=== PATIENT | male | born 1975 | race Caucasian/White ===

== ENCOUNTER 2023-01-11 12:59 | Outpatient (CLI) | payer BC, SELFPAY ==
[2023-01-11 13:21] LABS: Basophils Absolute Auto 0.1 K/mm3 (0.0-0.1); Basophils Percent Auto 0.7 % (0.2-1.2); Eosinophils Absolute Auto 0.1 K/mm3 (0-0.3); Eosinophils Percent Auto 1.2 % (0-4.4); Hematocrit 44.7 % (42.0-52.0); Immature Granulocyte Absolute 0.06 K/mm3 (0.00-0.031); Immature Granulocyte Percent A 0.6 % (0-0.5); Lymphocytes Absolute Auto 2.24 K/mm3 (0.9-3.2); Lymphocytes Percent Auto 22.8 % (18.3-44.2); Mean Corpuscular HGB Conc 33.6 g/dl (32-36); Mean Corpuscular Volume 83.4 fl (80-100); Mean Platelet Volume 9.1 fl (7.4-10.4); Monocytes Absolute Auto 0.8 K/mm3 (0.1-0.6); Monocytes Percent Auto 8.4 % (2.6-8.5); Neutrophils Absolute Auto 6.5 K/mm3 (1.3-6.7); Neutrophils Percent Auto 66.3 % (45.5-73.1); Platelet Count Result 325 k/mm3 (150-375); Red Blood Count 5.36 M/mm3 (4.6-6.20); Red Cell Distribution Width 14.4 % (11.5-14.5); White Blood Count 9.8 K/mm3 (4.5-10.0)
[2023-01-11 13:29] LABS: Alanine Aminotransferase 19 U/L (6-50); Albumin Level 4.8 g/dL (3.5-5.1); Alkaline Phosphatase 161 U/L (38-126); Anion Gap 8 mmol/L (8-16); Aspartate Amino Transferase 32 U/L (17-59); Bilirubin,Total 0.4 mg/dL (0.2-1.3); Blood Urea Nitrogen 17 mg/dL (9-20); Calcium 9.3 mg/dL (8.4-10.2); Carbon Dioxide 26 mmol/L (22-30); Chloride 103 mmol/L (98-107); Cholesterol 257 mg/dL (0-200); Estimated Glomerular Filt Rate > 60; Glucose 96 mg/dL (65-110); HDL Direct 33 mg/dL; Potassium 4.1 mmol/L (3.4-5.0); Sodium 137 mmol/L (137-145); Triglycerides 368 mg/dL (<150)
[2023-01-11 13:40] LABS: LDL Cholesterol Direct 157 mg/dL
[2023-01-11 13:54] LABS: Hemoglobin A1C 5.5 % (<5.7)
[2023-01-15 21:20] LABS: PSA, Free 0.29 ng/mL; PSA, Total 2.1 ng/mL (<=4.0)
== END 2023-01-11 13:00 | disposition home or self-care (01) ==
LOC: ANHLAB 13:01
PROVIDERS: PCP Family Medicine; Visit Provider Family Medicine
DX: I10 Essential (primary) hypertension (principal); E07.9 Disorder of thyroid, unspecified; E03.9 Hypothyroidism, unspecified; Z80.42 Family history of malignant neoplasm of prostate; Z13.1 Encounter for screening for diabetes mellitus; E78.2 Mixed hyperlipidemia
CPT/HCPCS: 36415; 80053; 80061; 83036; 84153; 84154; 84439; 84443; 85025

== ENCOUNTER 2023-01-23 10:55 | Outpatient (CLI) | payer BC, SELFPAY ==
--- NOTE | ~2023-01-23 | US_ITS ---
EXAMINATION: US thyroid DATE: 01/23/2023 11:19 INDICATION: Abnormal result of thyroid function studies TECHNIQUE: Multiple ultrasound images of the thyroid were obtained. COMPARISON: None. FINDINGS: The right thyroid lobe measures 4.5 x 1.2 x 1.6 cm. The left thyroid lobe measures 4.6 x 1.3 x 1.2 c m. No discrete nodules identified. There is diffuse heterogeneous decreased echogenicity with coarse laron echotexture and increased vascular flow on color Doppler throughout the thyroid which can be seen with thyroiditis. IMPRESSION: 1. Heterogeneous thyroid with decreased echogenicity, coarsened echotexture and increased vascular fl ow which can be seen with thyroiditis. Reviewed, dictated and finalized at location A. IMPRESSION: 1. Heterogeneous thyroid with decreased echogenicity, coarsened echotexture and increased vascular flow which can be seen with thyroiditis.
== END 2023-01-23 10:56 | disposition home or self-care (01) ==
LOC: ANHIMG 10:56
PROVIDERS: PCP Family Medicine; Visit Provider Physician Assistant
DX: R94.6 Abnormal results of thyroid function studies (principal)
CPT/HCPCS: 76536

== ENCOUNTER 2023-02-04 05:54 | Observation (INO) | payer BC, SELFPAY ==
--- NOTE | ~2023-02-04 | XR_ITS ---
XR wrist RT min 3V 02/04/2023 09:24 Indication: Right wrist pain Procedure: 4 views right wrist Comparison: No prior studies for comparison. Findings: There is anatomic alignment. No fracture, subluxation or dislocation. No foreign bodies. Impression: 1: No acute bone or joint abnormality. Reviewed, dictated and finalized at location B. Impression: 1: No acute bone or joint abnormality.
[2023-02-04 06:16] VITALS: BP 147/98; PULSE 87; RESP 18; TEMP 36.4; O2SAT 100
[2023-02-04 08:28] LABS: Basophils Percent Auto 0.2 % (0.2-1.2); Eosinophils Absolute Auto 0.1 K/mm3 (0-0.3); Hematocrit 41.8 % (42.0-52.0); Hemoglobin 13.9 g/dL (14.0-18.0); Immature Granulocyte Absolute 0.03 K/mm3 (0.00-0.031); Immature Granulocyte Percent A 0.3 % (0-0.5); Lymphocytes Absolute Auto 1.75 K/mm3 (0.9-3.2); Lymphocytes Percent Auto 19.2 % (18.3-44.2); Mean Corpuscular HGB Conc 33.3 g/dl (32-36); Mean Corpuscular Hemoglobin 28.1 pg (26-34); Mean Corpuscular Volume 84.6 fl (80-100); Mean Platelet Volume 9.3 fl (7.4-10.4); Monocytes Absolute Auto 0.8 K/mm3 (0.1-0.6); Neutrophils Absolute Auto 6.4 K/mm3 (1.3-6.7); Neutrophils Percent Auto 70.3 % (45.5-73.1); Platelet Count Result 254 k/mm3 (150-375); Red Blood Count 4.94 M/mm3 (4.6-6.20); Red Cell Distribution Width 14.6 % (11.5-14.5); White Blood Count 9.1 K/mm3 (4.5-10.0)
[2023-02-04 08:41] LABS: Alanine Aminotransferase 16 U/L (6-50); Albumin Level 4.3 g/dL (3.5-5.1); Alkaline Phosphatase 157 U/L (38-126); Anion Gap 7 mmol/L (8-16); Aspartate Amino Transferase 40 U/L (17-59); Bilirubin,Total 0.3 mg/dL (0.2-1.3); Blood Urea Nitrogen 20 mg/dL (9-20); Calcium 8.7 mg/dL (8.4-10.2); Carbon Dioxide 24 mmol/L (22-30); Chloride 109 mmol/L (98-107); Estimated CRCL calculation 117 ml/min; Estimated Glomerular Filt Rate > 60; Glucose 101 mg/dL (65-110); Potassium 3.9 mmol/L (3.4-5.0); Sodium 140 mmol/L (137-145); Uric Acid 7.2 mg/dL (3.5-8.5)
[2023-02-04 08:42] LABS: Rheumatoid Factor < 12.0 IU/ML (<12)
[2023-02-04 08:43] LABS: CRP 2.8 mg/dL (<1.0)
[2023-02-04 08:59] LABS: Erythrocyte Sedimentation Rate 17 mm/hr (0-20)
[2023-02-04] MEDS: diphenhydrAMINE HCl INJ 50 MG/ML VIAL 25 MG IV PUSH (09:01)
--- NOTE | 2023-02-04 10:10 | ED.GENADULT ---
HPI - General Adult General Chief complaint: Unspecified Stated complaint: hives, right arm swelling Time Seen by Provider: 02/04/23 07:19 History of Present Illness HPI narrative: Patient is a 47-year-old male who presents ER due to concerns for rash. Patient reports for the last several months he has been having sporadic rashes that can occur anywhere on his body. They have been on his ear, his lip, and his fingertips. They have also moved across his abdominal and chest wall. They will last for 1 to 2 days and go away on their own. No itching. He noticed yesterday his right hand at the hyperthenar eminence he was having some swelling and redness. He did not think much of it as its been what has been occurring. It then spread to the thenar eminence and proximally over his volar forearm. After arriving in the ER he newly developed blisters over the volar aspect of his wrist. He reports he was doing some yard work previously but was wearing gloves. He was only moving some dirt and concrete pavers and does not feel he was exposed to any poison amanda or poison sumac. He has no fevers or chills or sweats. He has been recently diagnosed with hypothyroidism and hyperlipidemia. He has started new medications for these but his skin issues have been ongoing longer. He has not tried any Benadryl or steroids. He is not on any antihistamines. He does have a brother who has plaque psoriasis as well as rheumatoid arthritis. His mother has an autoimmune liver disease. Patient is known to have history of eczema but reports this is different. Related Data Home Medications Medication Instructions Recorded Confirmed multivit,Ca,min-iron 8 mg-folic 1 tablet PO DAILY 01/08/23 02/04/23 acid 200 mcg-lycopene 600 mcg tablet (Centrum Men) Allergies Allergy/AdvReac Type Severity Reaction Status Date / Time formaldehyde Allergy Severe on patch Verified 02/04/23 11:56 test polyquaternium AdvReac Unknown in Uncoded 01/18/23 09:51 shampoo/cleaning products [facility] Past Medical History Medical History JOSE CRUZ (generalized anxiety disorder) Rash Surgical History Surgical History History of appendectomy History of excision of pilonidal cyst Family History Family History Mother Hypertension Autoimmune disease of liver Sibling Hypertension Malignant neoplasm of prostate Psoriasis Psoriatic arthritis Social History Social History Social History: Single Smoking packs per day: 1 Smoking cigarettes per day: 20.0 Years smoked: 25 Smoking pack-years: 25.00 Smoking status: Current every day smoker Tobacco type: cigarettes Second hand tobacco smoke exposure: No Alcohol intake: never Alcohol use details: Pt drinks 6 pack a month. Substance use: never Substance use type: does not use Lack of Transportation: No Lack of Food: Never True Current Housing: I Have Housing Concerned About Future Housing: No Difficulty Paying Gas/Electric Bills: No Difficulty Paying for Meds: No Currently Unemployed: No Education: Don't Know Difficulty w/ Childcare or Family Care: No Living arrangements: with family Occupation/Education: occupation Gender identity (if verbalized by the patient): Male Sexual Orientation (if Verbalized by the Patient): Straight or Heterosexual Spiritual care concerns: No Exam Narrative: GENERAL: Well-appearing, well-nourished, and in no acute distress. HEAD: Normocephalic, atraumatic. ENT: Mucous membranes moist. No angioedema or tongue swelling. NECK: Supple. CHEST: Clear to auscultation. No respiratory distress. HEART: Regular rate and rhythm. Normal peripheral pulses. ABDOMEN: Soft, nontender, nondistended. EXTREMITIES: Swelling an
[2023-02-04 11:33] VITALS: BP 123/93; PULSE 81; RESP 16
[2023-02-04] MEDS: methylPREDNISolone SOD SUCC 125 MG VIAL 60 MG IV PUSH ×2 (11:33→17:21)
--- NOTE | 2023-02-04 11:54 | ADMGEN ---
This patient, Pedro Pablo Mcdaniels, was admitted to [facility] Surg Room 314-02. Patient/family oriented to hospital policies and general routines including ID bracelet, bed and alarms, visiting hours, pain management, procedures, bathroom and other care routines, personal items, smoking policy, room service/diet, and visiting hours. Information on how to activate the Rapid Response Team has been discussed. Patient/Family are encouraged to report perceived risks to care and to ask questions if they do not understand what they are told or what they should do.
[2023-02-04 13:33] VITALS: BP 124/84; PULSE 88; RESP 16; TEMP 35.9; O2SAT 98
--- NOTE | 2023-02-04 14:21 | PM.CNGS ---
Assessment and Plan Assessment and plan (1) Rash: Code(s): R21 - Rash and other nonspecific skin eruption <SAMMY Gilbert - Last Filed: 02/04/23 15:10> Status: Acute <SAMMY Gilbert - Last Filed: 02/04/23 15:10> Assessment and Plan: Patient with right upper extremity rash of unclear etiology. Question of possibly a cutaneous source, autoimmune disorder, or possibly vasculitis. Currently on IV steroids. We have been consulted for possible biopsy. Will await Hospitalist recommendations to decipher appropriate biopsy and plan accordingly. Thank you for allowing us to see the patient in consultation and we will continue to follow along with you. <SAMMY Gilbert - Last Filed: 02/04/23 15:10> Assessment and Plan: I have discussed the patient's case and plan of care with Dr. Whaley. <SAMMY Gilbert - Last Filed: 02/04/23 15:10> I have discussed the patient's case and plan of care with Dr. Whaley. I, Nighat Whaley MD, have provided a substantive portion of the care of this patient. I performed the history, exam and/or medical decision making for this encounter. RUE - mild swelling, redness, M/S intact, normal vascular exam, labs and imaging reviewed, await medical evaluation but improvement c steroids, will hold off on bx at this time Nighat Whaley MD 02/04/23 <Nighat Whaley MD - Last Filed: 02/05/23 07:45> History of Present Illness Consult details Consult date: 02/04/23 <SAMMY Gilbert - Last Filed: 02/04/23 15:10> 02/05/23 <Nighat Whaley MD - Last Filed: 02/05/23 07:45> Reason for consult: other (Skin biopsy for right upper extremity rash) <SAMMY Gilbert - Last Filed: 02/04/23 15:10> Requesting physician: Ronal Narayanan MD <SAMMY Gilbert - Last Filed: 02/04/23 15:10> Narrative: This is a 47-year-old man who presented to the ER today with complaints of right arm swelling and rash. He reports over the past year having an intermittent sporadic rash on various areas of his body. Over the past few months, this has become more frequent and he has a new rash nearly every day. Typically, this is a raised pink area that occurs on his upper extremities, trunk, and head. He reports having an area on his right ear and another area on the right side of his face over the past week that has already resolved. Typically this resolves over 2-3 days. The area gets slightly swollen and itchy, but is not painful. He reports also having a history of eczema, but these rashes are different. Yesterday, he developed a small pink raised area on the volar aspect of the wrist. He has had this rash in this area in the past and initially did not think anything of it. Until today, when his entire wrist, lower forearm, and right hand became much more swollen than normal, and he developed blisters in this area and 1 small dark and purple area that he calls bruising. No numbness or tingling to his right hand or arm. He denies any recent trauma to this area. No open wounds or cuts. Due to the significant swelling and rash, he presented to the ER for further evaluation. Labs showed a normal white blood cell count. Wrist x-ray showed no acute bone or joint abnormality. He was given IV Benadryl and steroids in the ER. He is being admitted to the hospitalist service. Our service has been consulted as a request for a biopsy. The patient is now seen on the medical floor. He denies any pain in the right upper extremity. He reports itching in this area. No other complaints at this time. He does report seeing a electrocardiograph repairer back in September, but this was for his eczema and he did not have an active rash at that time. He reports a family history of psoriasis and psoriatic arthritis in his brother, and an autoimmune disease of the liver in his mother. <SAMMY Gilbert - Last Filed: 02/04/23 15:10> Review of Systems Review of Systems: All systems revie
[2023-02-04 18:05] VITALS: PULSE 88; RESP 16; O2SAT 98
[2023-02-04 20:00] VITALS: PULSE 93; RESP 18; O2SAT 98
[2023-02-04 22:00] VITALS: BP 143/98; PULSE 93; RESP 18; TEMP 36.1; O2SAT 98
[2023-02-04] MEDS: FAMOTIDINE 20 MG TABLET PO (23:57)
[2023-02-04] MEDS: SERTRALINE HCL 50 MG TABLET PO (23:57)
--- NOTE | 2023-02-05 02:43 | PM.IMHP ---
H&P: HPI History of Present Illness Date/Time: 02/04/23 20:00 Chief Complaint: Right hand swelling and blistering. Narrative: This is a very pleasant 47-year-old male with eczema, hypertension, hypothyroidism, and anxiety who presented to the emergency department via private vehicle from home for evaluation of right hand swelling and blistering. He reports sporadic, intermittent rashes on various parts of his body over the past year or so. It has become increasingly frequent over the past couple of months and he has new rashes almost every day. He describes pinkish, raised areas that can be circular or irregularly in shape. They pop up in random distribution and resolved within a couple of days without hyperpigmentation. They are quite pruritic but not necessarily painful. At times he will have swelling of the ear cartilage upon waking in the morning, possibly related to pressure from lying on that side. Occasionally he has mild angioedema of the lips. He sees no pattern as to when they occur though he has had increasing stress recently. The symptoms are not similar to those he has with his eczema which mainly affects his flexor surfaces. He has been taking Pepcid and occasional Zyrtec at home and they do seem to help with the itching. He was seen at his primary provider's office and was given triamcinolone cream which seems to help as well. Yesterday he is noticed a small raised area on the volar aspect of his right wrist near where he gets eczema. The area was pruritic and he does admit to scratching it but quite gingerly. Upon waking this morning his right wrist and forearm was swollen and he had developed several small blisters and 1 bulla around the wrist. In the ED he was given IV Benadryl and Solu-Medrol and he thinks the Solu-Medrol has improved the swelling somewhat. The arm is warm and red but that has improved with the above treatment. He has not had fever, chills, or sweats. He denies numbness in that arm. He denies lying on that arm, injuring the arm, or dependent positioning of the arm. He has never had blistering before. He denies fever, chills, and sweats. He has not noticed any bruising or the like. No other joint swelling. No focal weakness. Mucous membranes are not blistered. No recent change in medications. He denies exposure to contact irritants. He does take NSAIDs on occasion. He has no history of autoimmune disease but his brother has psoriatic arthritis in his mother had autoimmune hepatitis. Review of Systems Review of Systems: Twelve systems were reviewed and are negative except for as per HPI. [facility] Past Medical History Medical History Anxiety Eczema Hypertension Hypothyroidism Tobacco use Surgical History Surgical History History of appendectomy History of excision of pilonidal cyst Family History Family History Mother Hypertension Autoimmune disease of liver Sibling Hypertension Malignant neoplasm of prostate Psoriasis Psoriatic arthritis Social History Social History (Updated 02/05/23 @ 21:15 by Vivian Draper PA-C) Social History: Surrogate medical decision maker: Darlyn Mcdaniels, mother. Code status: Full code. Smoking packs per day: 1 Smoking cigarettes per day: 20.0 Years smoked: 25 Smoking pack-years: 25.00 Smoking status: Current every day smoker Tobacco type: cigarettes Second hand tobacco smoke exposure: No Alcohol intake: never Alcohol use details: Pt drinks a 6 pack a month. Substance use: never Substance use type: does not use Lack of Transportation: No Lack of Food: Never True Current Housing: I Have Housing Concerned About Future Housing: No Difficulty Paying Gas/Electric Bills: No Difficulty Paying for Meds: No Currently Unemployed: No Education: Don't Know Difficulty w/ Childcare or Family Care: No Living arrangements:
[2023-02-05 06:00] VITALS: BP 123/91; PULSE 86; RESP 14; TEMP 36.6; O2SAT 97
[2023-02-05] MEDS: LEVOTHYROXINE SODIUM 25 MCG TABLET PO (06:11)
[2023-02-05 06:25] LABS: Basophils Percent Auto 0.1 % (0.2-1.2); Eosinophils Percent Auto 0.1 % (0-4.4); Hemoglobin 13.9 g/dL (14.0-18.0); Immature Granulocyte Absolute 0.09 K/mm3 (0.00-0.031); Immature Granulocyte Percent A 0.6 % (0-0.5); Lymphocytes Absolute Auto 1.37 K/mm3 (0.9-3.2); Lymphocytes Percent Auto 9.8 % (18.3-44.2); Mean Corpuscular HGB Conc 33.9 g/dl (32-36); Mean Corpuscular Hemoglobin 28.1 pg (26-34); Mean Platelet Volume 9.4 fl (7.4-10.4); Monocytes Absolute Auto 0.8 K/mm3 (0.1-0.6); Monocytes Percent Auto 5.7 % (2.6-8.5); Neutrophils Absolute Auto 11.7 K/mm3 (1.3-6.7); Neutrophils Percent Auto 83.7 % (45.5-73.1); Platelet Count Result 286 k/mm3 (150-375); Red Blood Count 4.94 M/mm3 (4.6-6.20); Red Cell Distribution Width 14.5 % (11.5-14.5); White Blood Count 13.9 K/mm3 (4.5-10.0)
[2023-02-05 06:45] LABS: Anion Gap 6 mmol/L (8-16); Blood Urea Nitrogen 20 mg/dL (9-20); Calcium 9.1 mg/dL (8.4-10.2); Carbon Dioxide 26 mmol/L (22-30); Chloride 107 mmol/L (98-107); Estimated CRCL calculation 104 ml/min; Estimated Glomerular Filt Rate > 60; Glucose 116 mg/dL (65-110); Potassium 4.2 mmol/L (3.4-5.0); Sodium 139 mmol/L (137-145); Uric Acid 6.1 mg/dL (3.5-8.5)
[2023-02-05 07:43] LABS: Erythrocyte Sedimentation Rate 18 mm/hr (0-20)
[2023-02-05 07:55] LABS: Free T4 Free Thyroxine Reflex 0.62 ng/dL (0.78-2.19)
[2023-02-05] MEDS: LOSARTAN POTASSIUM 25 MG TABLET PO (08:57)
[2023-02-05] MEDS: THERAPEUTIC MULTIVITAMINS/MINERALS TAB (*BKC) 1 TABLET PO (08:57)
[2023-02-05] MEDS: TRIAMCINOLONE ACET 0.5% CREAM 15 GM TUBE 1 APPLIC TOPICAL (08:57)
[2023-02-05 09:18] LABS: Immunoglobulin A 229 mg/dL (70-400); Immunoglobulin G 686 mg/dL (700-1600); Immunoglobulin M 73 mg/dL (40-230)
[2023-02-05] MEDS: predniSONE 20 MG TABLET 40 MG PO (11:47)
[2023-02-05] MEDS: FAMOTIDINE 20 MG TABLET PO (11:47)
[2023-02-05] MEDS: SERTRALINE HCL 50 MG TABLET PO (11:47)
--- NOTE | 2023-02-05 11:50 | PM.DS ---
DS: Admitting Diagnosis Discharge Date 02/05/2023 Admitting Diagnosis Localized swelling of right upper extremity Dermatitis right wrist and arm Essential (primary) hypertension Hypothyroidism, unspecified DS: Discharge Diagnosis Discharge Diagnosis (1) Localized swelling of right upper extremity: Code(s): R22.31 - Localized swelling, mass and lump, right upper limb Status: Acute Assessment and Plan: Patient has some swelling over the distal aspect of the right forearm and into the wrist and hand. Swelling does not include the joint and is localized to the dermis. Patient does have blistering with clear fluid, pruritus, but denies pain. DVT less likely as it is isolated to hand and wrist. The area is mildly warm, likely due to swelling, but no purulent drainage, open wounds, fevers, leukocytosis and cellulitis is less likely. Some improvement with systemic steroids. Continue prednisone taper, elevation and ice compresses at discharge. (2) Dermatitis: Code(s): L30.9 - Dermatitis, unspecified Status: Acute Assessment and Plan: The patient has had intermittent episodes of rashes and swelling to face, trunk, ear region and extremities lasting a few days and resolving spontaneously. Appearance described as raised, circular wheels. Symptoms have worsened recently due to increase in stress. Not consistent contact allergy. He sees a service worker outpatient and encouraged to schedule follow up. He was instructed on skin hygiene, keeping a journal of outbreak locations and preceeding or associated symptoms. He was discharged on prednisone taper x 12 days. Skin biopsy was considered but deferred and dakota was instructed to see his service worker for biopsy need. (3) Hypertension: Qualifiers: Hypertension type: primary hypertension Qualified Code(s): I10 - Essential (primary) hypertension Code(s): I10 - Essential (primary) hypertension Status: Chronic Assessment and Plan: Blood pressures stable, likely a bit elevated due to anxiety. Continue antihypertensives and monitor. (4) Hypothyroidism: Qualifiers: Hypothyroidism type: unspecified Qualified Code(s): E03.9 - Hypothyroidism, unspecified Code(s): E03.9 - Hypothyroidism, unspecified Status: Chronic Assessment and Plan: Continue levothyroxine. Thyroid panel shows unchanged TSH and free T4. Patient reports he has only been taking medications for ~3 weeks and has scheduled follow up with PCP. Will defer to PCP for further medicaiton adjustment. DS: Summary Hospital Course Reason for hospitalization: Right hand swelling and blistering Hospital Course: Patient is a 47-year-old male with eczema, hypertension, hypothyroidism, and anxiety who presented to the emergency department via private vehicle from home for evaluation of right hand swelling and blistering. He reported sporadic, intermittent rashes on various parts of his body over the past year or so. It has become increasingly frequent over the past couple of months and he has new rashes almost every day. He described pinkish, raised areas that can be circular or irregularly in shape. They pop up in random distribution and resolved within a couple of days without hyperpigmentation. They are pruritic but not necessarily painful. At times he will have swelling of the ear cartilage upon waking in the morning, possibly related to pressure from lying on that side. Occasionally he has mild angioedema of the lips. He sees no pattern as to when they occur though he has had increasing stress recently. The symptoms are not similar to those he has with his eczema which mainly affects his flexor surfaces. He has been taking Pepcid and occasional Zyrtec at home and they do seem to help with the itching. He was seen at his primary provider's office and was given triamcinolone cream which seems to help as well. He has also been evaluated by jose Castro
[2023-02-08 13:17] LABS: Anti Cyclic Citrullinated Pept <16 Units (<20)
[2023-02-11 07:29] LABS: Tissue Transglutaminase IgA Ab <1.0 U/mL (<15.0)
[2023-02-11 12:53] LABS: Endomysial Ab (IgA) Screen Negative (Negative)
== END 2023-02-05 12:20 | disposition home or self-care (01) ==
LOC: ANHED 11:11 → ANH3MEDSUR 11:29
PROVIDERS: Nurse Practitioner Family; Physician Assistant; Admitting Provider Chiropractor; Emergency Provider Emergency Medicine; PCP Family Medicine; Visit Provider Student in an Organized Health Care Education/Training Program
DX: R22.31 Localized swelling, mass and lump, right upper limb (principal); T78.3XXA Angioneurotic edema, initial encounter; L30.9 Dermatitis, unspecified; I10 Essential (primary) hypertension; E03.9 Hypothyroidism, unspecified; E78.5 Hyperlipidemia, unspecified; F41.1 Generalized anxiety disorder; F17.210 Nicotine dependence, cigarettes, uncomplicated; Z79.52 Long term (current) use of systemic steroids; Z79.899 Other long term (current) drug therapy; Z84.0 Family history of diseases of the skin and subcutaneous tissue
CPT/HCPCS: 36415; 73110; 80048; 80053; 82784; 84439; 84443; 84550; 85025; 85652; 86038; 86140; 86200; 86255; 86364; 86430; 96374; 96375; 96376; 99285; A9270; G0378; J1200; J2930; J7512

== ENCOUNTER 2023-03-29 07:01 | Outpatient (CLI) | payer BC, SELFPAY ==
[2023-03-29 08:17] LABS: Alanine Aminotransferase 21 U/L (6-50); Albumin Level 4.3 g/dL (3.5-5.1); Alkaline Phosphatase 163 U/L (38-126); Anion Gap 3 mmol/L (8-16); Aspartate Amino Transferase 36 U/L (17-59); Bilirubin,Total 0.3 mg/dL (0.2-1.3); Blood Urea Nitrogen 15 mg/dL (9-20); Calcium 9.1 mg/dL (8.4-10.2); Carbon Dioxide 26 mmol/L (22-30); Chloride 107 mmol/L (98-107); Cholesterol 282 mg/dL (0-200); Estimated Glomerular Filt Rate > 60; Glucose 99 mg/dL (65-110); HDL Direct 31 mg/dL; Potassium 4.1 mmol/L (3.4-5.0); Sodium 136 mmol/L (137-145); Triglycerides 348 mg/dL (<150)
[2023-03-29 08:31] LABS: LDL Cholesterol Direct 160 mg/dL
[2023-03-29 13:35] LABS: Free T4 Free Thyroxine Reflex 0.78 ng/dL (0.78-2.19)
[2023-03-29 14:27] LABS: Total Triiodothyronine (T3) 1.55 NG/ML (0.97-1.69)
== END 2023-03-29 07:02 | disposition home or self-care (01) ==
LOC: ANHLAB 07:02
PROVIDERS: PCP Family Medicine; Visit Provider Physician Assistant
DX: R79.89 Other specified abnormal findings of blood chemistry (principal); E78.2 Mixed hyperlipidemia
CPT/HCPCS: 36415; 80053; 80061; 84439; 84443; 84480

== ENCOUNTER 2023-05-17 06:49 | Outpatient (CLI) | payer BC, SELFPAY ==
[2023-05-17 07:52] LABS: Free T4 Free Thyroxine 0.85 ng/mL (0.78-2.19)
[2023-05-21 03:30] LABS: Thyroid Peroxidase Antibodies 273 IU/mL (<9)
[2023-05-22 04:21] LABS: Triiodothyronine T3 Free 3.1 pg/mL (2.3-4.2)
== END 2023-05-17 06:50 | disposition home or self-care (01) ==
LOC: ANHLAB 06:50
PROVIDERS: PCP Family Medicine; Visit Provider Physician Assistant
DX: E07.9 Disorder of thyroid, unspecified (principal); E03.9 Hypothyroidism, unspecified
CPT/HCPCS: 36415; 84439; 84443; 84481; 86376

== ENCOUNTER 2023-07-22 10:25 | Outpatient (CLI) | payer BC, SELFPAY ==
[2023-07-22 12:01] LABS: Free T4 Free Thyroxine 1.32 ng/mL (0.78-2.19)
[2023-07-22 12:14] LABS: Total Triiodothyronine (T3) 1.16 NG/ML (0.97-1.69)
== END 2023-07-22 10:26 | disposition home or self-care (01) ==
PROVIDERS: PCP Family Medicine; Visit Provider Family Medicine
DX: E03.9 Hypothyroidism, unspecified (principal)
CPT/HCPCS: 36415; 84439; 84443; 84480

== ENCOUNTER 2024-01-24 06:48 | Outpatient (CLI) | payer BC, SELFPAY ==
[2024-01-24 07:10] LABS: Basophils Absolute Auto 0.1 K/mm3 (0.0-0.1); Basophils Percent Auto 0.8 % (0.2-1.2); Eosinophils Absolute Auto 0.1 K/mm3 (0-0.3); Eosinophils Percent Auto 1.6 % (0-4.4); Hematocrit 41.3 % (42.0-52.0); Hemoglobin 13.9 g/dL (14.0-18.0); Immature Granulocyte Absolute 0.04 K/mm3 (0.00-0.031); Immature Granulocyte Percent A 0.5 % (0-0.5); Lymphocytes Absolute Auto 2.14 K/mm3 (0.9-3.2); Lymphocytes Percent Auto 24.9 % (18.3-44.2); Mean Corpuscular HGB Conc 33.7 g/dl (32-36); Mean Corpuscular Volume 83.1 fl (80-100); Mean Platelet Volume 9.9 fl (7.4-10.4); Monocytes Percent Auto 11.6 % (2.6-8.5); Neutrophils Absolute Auto 5.2 K/mm3 (1.3-6.7); Neutrophils Percent Auto 60.6 % (45.5-73.1); Platelet Count Result 292 k/mm3 (150-375); Red Blood Count 4.97 M/mm3 (4.6-6.20); Red Cell Distribution Width 15.3 % (11.5-14.5); White Blood Count 8.6 K/mm3 (4.5-10.0)
[2024-01-24 07:18] LABS: Alanine Aminotransferase 15 U/L (6-50); Albumin Level 4.2 g/dL (3.5-5.1); Alkaline Phosphatase 158 U/L (38-126); Anion Gap 7 mmol/L (4-12); Aspartate Amino Transferase 27 U/L (17-59); Bilirubin,Total 0.3 mg/dL (0.2-1.3); Blood Urea Nitrogen 20 mg/dL (9-20); Calcium 9.3 mg/dL (8.4-10.2); Carbon Dioxide 24 mmol/L (22-30); Chloride 109 mmol/L (98-107); Cholesterol 249 mg/dL (0-200); Estimated Glomerular Filt Rate > 60; Glucose 111 mg/dL (65-110); HDL Direct 32 mg/dL; Potassium 3.9 mmol/L (3.4-5.0); Sodium 140 mmol/L (137-145); Triglycerides 358 mg/dL (<150)
[2024-01-24 07:29] LABS: LDL Cholesterol Direct 152 mg/dL
[2024-01-24 08:08] LABS: Free T4 Free Thyroxine 1.03 ng/mL (0.78-2.19)
== END 2024-01-24 06:49 | disposition home or self-care (01) ==
LOC: ANHLAB 06:49
PROVIDERS: PCP Family Medicine; Visit Provider Family Medicine
DX: E03.9 Hypothyroidism, unspecified (principal); I10 Essential (primary) hypertension; E78.2 Mixed hyperlipidemia
CPT/HCPCS: 36415; 80053; 80061; 84439; 84443; 85025

== ENCOUNTER 2024-04-30 06:38 | Outpatient (CLI) | payer BC, SELFPAY ==
[2024-04-30 07:44] LABS: Alanine Aminotransferase 15 U/L (6-50); Aspartate Amino Transferase 38 U/L (17-59)
[2024-04-30 08:13] LABS: Total Triiodothyronine (T3) 1.12 NG/ML (0.97-1.69)
[2024-04-30 08:31] LABS: Free T4 Free Thyroxine 0.78 ng/mL (0.78-2.19)
== END 2024-04-30 06:39 | disposition home or self-care (01) ==
PROVIDERS: PCP Family Medicine; Visit Provider Family Medicine
DX: E03.9 Hypothyroidism, unspecified (principal); Z79.899 Other long term (current) drug therapy
CPT/HCPCS: 36415; 84439; 84443; 84450; 84460; 84480

== ENCOUNTER 2024-06-04 01:50 | Day surgery (SDC) | payer BC, SELFPAY ==
--- NOTE | 2024-03-24 14:27 | SUR.PREOP ---
Patient called to reschedule his procedure due to doctor being unavailable. Message left on pt's vm requesting a call back.
[2024-05-14 15:41] VITALS: BMI 30.1
[2024-06-04 06:18] VITALS: BP 147/84; PULSE 92; RESP 18; TEMP 35.6; O2SAT 99; BMI 28.3
[2024-06-04] MEDS: LACTATED RINGERS 1,000 ML 150 ML IV CONT (06:31)
--- NOTE | 2024-06-04 06:38 | WPDANESEPPF ---
Anes - Initial Pre Proc Eval Procedure: Operation Date: 06/04/24 07:30 Proposed Procedures p Screening Colonoscopy - Bladimir Phelps MD Date/Time: 06/04/24 06:38 Surgeon: Bladimir Phelps MD Pre Op Diagnosis: neoplasm screening Patient Data Age: 49 Gender: M Height: 1.78 m Weight: 89.7 kg Last Vital Signs Temp 96.1 F L 06/04/24 06:18 Pulse 92 06/04/24 06:18 Resp 18 06/04/24 06:18 BP 147/84 H 06/04/24 06:18 Pulse Ox 99 06/04/24 06:18 O2 Del Method Room Air 06/04/24 06:18 Allergies Allergy/AdvReac Type Severity Reaction Status Date / Time SIMA Inhibitors Allergy Severe Anaphylaxis Verified 06/04/24 06:16 ARB-Angiotensin Receptor Allergy Severe angioedema Verified 06/04/24 06:16 Antagonist formaldehyde Allergy Severe on patch Verified 06/04/24 06:16 test polyquaternium Allergy Unknown in Uncoded 06/04/24 06:16 shampoo/cleaning products Home Medications Medication Instructions Recorded Confirmed Type multivit,Ca,min-iron 8 mg-folic 1 tablet PO DAILY 01/08/23 06/04/24 History acid 200 mcg-lycopene 600 mcg tablet (Centrum Men) famotidine 20 mg tablet (Pepcid AC) 20 mg PO Q12H #180 tabs 05/07/23 06/04/24 Rx dupilumab 300 mg/2 mL subcutaneous 300 mg subcut WEEKLY 07/26/23 06/04/24 History pen injector (Dupixent) sertraline 100 mg tablet See Rx Instructions .Route 04/01/24 06/04/24 Rx .COMPLEX #90 tabs rosuvastatin 5 mg tablet See Rx Instructions .Route 04/20/24 06/04/24 Rx .COMPLEX #90 tabs amlodipine 10 mg tablet See Rx Instructions .Route 04/28/24 06/04/24 Rx .COMPLEX #90 tabs levothyroxine 100 mcg tablet 100 mcg PO DAILY 05/01/24 06/04/24 History Patient hx anesthesia problems: none Family hx anesthesia problems: none Results Review: All pre-operative results and documents have been reviewed as part of the pre-operative evaluation. [facility] Past Medical History Medical History Allergy to SIMA inhibitors Allergy to angiotensin receptor blockers (ARB) Anxiety Colon cancer screening Eczema Hypertension Hypothyroidism Idiopathic [id number] Tobacco use Surgical History Surgical History History of appendectomy History of excision of pilonidal cyst Family History Family History Mother Hypertension Autoimmune disease of liver Sibling Hypertension Malignant neoplasm of prostate Psoriasis Psoriatic arthritis Social History Social History Social History: Surrogate medical decision maker: Darlyn Mcdaniels, mother. Code status: Full code. Smoking packs per day: 0.5 Smoking cigarettes per day: 10.0 Years smoked: 25 Smoking pack-years: 12.50 Smoking status: Current every day smoker Tobacco type: cigarettes Second hand tobacco smoke exposure: No Alcohol intake: current Alcohol use details: Pt drinks a 6 pack a month. Substance use: never Substance use type: does not use Lack of Transportation: No Lack of Food: Never True Current Housing: I Have Housing Concerned About Future Housing: No Difficulty Paying Gas/Electric Bills: No Difficulty Paying for Meds: No Currently Unemployed: No Education: Don't Know Difficulty w/ Childcare or Family Care: No Living arrangements: with family Occupation/Education: occupation Additional occupation/education comments: [employer]. Gender identity (if verbalized by the patient): Male Sexual Orientation (if Verbalized by the Patient): Straight or Heterosexual Spiritual care concerns: No Anes - Eval Final PreProcedure Day of Procedure 06/04/24 06:38 Patient weight: overweight Heart: regular rate and rhythm Lungs: clear to auscultation Airway: Mallampati scale class II Neurological: alert and oriented Last oral intake: >/=
--- NOTE | 2024-06-04 07:29 | PM.HPGS ---
History of Present Illness History of Present Illness Consent: Risks, benefits, and alternatives have been discussed and questions answered. Patient agrees to proceed with procedure. Chief complaint: neoplasm screening Narrative: Pedro Pablo Mcdaniels is a 49 year old male here for first screening colonoscopy Review of Systems Review of Systems: All systems reviewed & are unremarkable except as noted in HPI and below PMFSH Past Medical History Medical History Allergy to SIMA inhibitors Allergy to angiotensin receptor blockers (ARB) Anxiety Colon cancer screening Eczema Hypertension Hypothyroidism Idiopathic [id number] Tobacco use Surgical History Surgical History History of appendectomy History of excision of pilonidal cyst Family History Family History Mother Hypertension Autoimmune disease of liver Sibling Hypertension Malignant neoplasm of prostate Psoriasis Psoriatic arthritis Social History Social History Social History: Surrogate medical decision maker: Darlyn Mcdaniels, mother. Code status: Full code. Smoking packs per day: 0.5 Smoking cigarettes per day: 10.0 Years smoked: 25 Smoking pack-years: 12.50 Smoking status: Current every day smoker Tobacco type: cigarettes Second hand tobacco smoke exposure: No Alcohol intake: current Alcohol use details: Pt drinks a 6 pack a month. 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 Gender identity (if verbalized by the patient): Male Sexual Orientation (if Verbalized by the Patient): Straight or Heterosexual Spiritual care concerns: No Meds Home Medications and Allergies Home Medications Medication Instructions Recorded Confirmed Type multivit,Ca,min-iron 8 mg-folic 1 tablet PO DAILY 01/08/23 06/04/24 History acid 200 mcg-lycopene 600 mcg tablet (Centrum Men) famotidine 20 mg tablet (Pepcid AC) 20 mg PO Q12H #180 tabs 05/07/23 06/04/24 Rx dupilumab 300 mg/2 mL subcutaneous 300 mg subcut WEEKLY 07/26/23 06/04/24 History pen injector (Dupixent) sertraline 100 mg tablet See Rx Instructions .Route 04/01/24 06/04/24 Rx .COMPLEX #90 tabs rosuvastatin 5 mg tablet See Rx Instructions .Route 04/20/24 06/04/24 Rx .COMPLEX #90 tabs amlodipine 10 mg tablet See Rx Instructions .Route 04/28/24 06/04/24 Rx .COMPLEX #90 tabs levothyroxine 100 mcg tablet 100 mcg PO DAILY 05/01/24 06/04/24 History Allergies Allergy/AdvReac Type Severity Reaction Status Date / Time SIMA Inhibitors Allergy Severe Anaphylaxis Verified 06/04/24 06:16 ARB-Angiotensin Receptor Allergy Severe angioedema Verified 06/04/24 06:16 Antagonist formaldehyde Allergy Severe on patch Verified 06/04/24 06:16 test polyquaternium Allergy Unknown in Uncoded 06/04/24 06:16 shampoo/cleaning products Vital Signs Vital Signs - 24 hr 06/04/24 06:18 Temperature 96.1 F L Pulse Rate 92 Respiratory Rate 18 Blood Pressure 147/84 H Pulse Oximetry 99 Oxygen Delivery Room Air Exam Const: General: comfortable and no acute distress HENMT: Face/Nose/Sinus: Normal nares present Eyes: General: appearance normal, both eyes and all related structures Neck: Neck: no JVD Resp: Auscultation: clear to auscultation bilaterally Cardio: Rate: regular rate Rhythm: regular rhythm GI: Inspection: non-distende
[2024-06-04 07:45] VITALS: BP 112/68; PULSE 80; RESP 22; O2SAT 97
[2024-06-04 07:55] VITALS: BP 103/70; PULSE 81; RESP 22; O2SAT 98
[2024-06-04 08:05] VITALS: BP 117/79; PULSE 73; RESP 20; O2SAT 98
== END 2024-06-04 08:12 | disposition home or self-care (01) ==
PROVIDERS: PCP Family Medicine; Visit Provider Internal Medicine Gastroenterology
PROC: 0DJD8ZZ Inspection of Lower Intestinal Tract, Via Natural or Artificial Opening Endoscopic (ICD-10-PCS; CPT 45378; principal; 2024-06-04 07:30)
DX: Z12.11 Encounter for screening for malignant neoplasm of colon (principal); K64.8 Other hemorrhoids; K57.30 Diverticulosis of large intestine without perforation or abscess without bleeding; I10 Essential (primary) hypertension; E03.9 Hypothyroidism, unspecified; F41.9 Anxiety disorder, unspecified; F17.210 Nicotine dependence, cigarettes, uncomplicated; Z79.85 Long-term (current) use of injectable non-insulin antidiabetic drugs; Z98.890 Other specified postprocedural states; Z80.42 Family history of malignant neoplasm of prostate
CPT/HCPCS: 45378; J2704; J7120

== ENCOUNTER 2024-07-02 06:54 | Outpatient (CLI) | payer BC, SELFPAY ==
[2024-07-02 08:45] LABS: Free T4 Free Thyroxine 0.95 ng/mL (0.78-2.19)
== END 2024-07-02 06:55 | disposition home or self-care (01) ==
LOC: ANHLAB 06:55
PROVIDERS: PCP Family Medicine; Visit Provider Student in an Organized Health Care Education/Training Program
DX: E03.9 Hypothyroidism, unspecified (principal)
CPT/HCPCS: 36415; 84439; 84443

== ENCOUNTER 2024-11-20 07:03 | Outpatient (CLI) | payer BC, SELFPAY ==
--- OUTSIDE RECORDS SUMMARY | 2024-11-20 07:08 | XMS_ITS | Patient Health Summary ---
Author Organization [facility] Address [address] [place] [address] Care Team Providers Care Hazardous Substances Engineer Name Role Phone Unknown, Provider Primary Care Provider Unavaila ble Note from [facility],non-owned Affiliates and Associated Physician Practices is amultiple site organization consisting of ambulatory clinics and hospital sitesin [place], [place], [place] and [place]. This disclosure is being madepursuant to the Care Everywhere program and may not contain all information available regarding this patient. Last updated 18.[facility] Medications Be aware that medications may not be up to date on this document. Always verify current medications with the patient. No known medications Active Problems No known active problems Social History Tobacco Use Types Packs/Day Years Used Date Smoking Tobacco: Never Assessed PHQ-2 Answer Date Recorded Patient Health Questionnaire-2 Score 0 08/15/2023 Sex and Gender Information Value Date Recorded Sex Assigned at Not on file Gender Identity Not on file Sexual Orientation Not on file Last Filed Vital Signs Vital Sign Reading Time Taken Comments Blood Pressure 128/96 08/15/2023 2:04 PM HAT STEAMER Pulse 109 08/15/2023 2:04 PM HAT STEAMER Temperature 37 C (98.6 F) 08/15/2023 2:04 PM HAT STEAMER Respiratory Rate - - Oxygen Saturation 97% 08/15/2023 2:04 PM HAT STEAMER Inhaled Oxygen Concentration - - Weight 92.4 kg (203 lb 12.8 oz) 08/15/2023 2:04 PM HAT STEAMER Height 177.8 cm (5' 10 ) 08/15/2023 2:04 PM HAT STEAMER Body Mass Index 29.24 08/15/2023 2:04 PM HAT STEAMER Care Teams Hazardous Substances Engineer Relationship Specialty Start Date End Date Unknown, Provider PCP - General 08/15/23
--- OUTSIDE RECORDS SUMMARY | 2024-11-20 07:08 | XMS_ITS | Referral Summary ---
Author Organization [facility] Address [address] [place] [address] Care Team Providers Care Weaving Supervisor Name Role Phone Unknown, Provider Primary Care Provider Unavaila ble Source Comments [facility],non-owned Affiliates and Associated Physician Practices is amultiple site organization consisting of ambulatory clinics and hospital sitesin [place], [place], [place] and [place]. This disclosure is being madepursuant to the Care Everywhere program and may not contain all information available regarding this patient. Last updated 18.[facility] Medications Be aware that medications may not [...] Comments Blood Pressure 128/96 08/15/2023 2:04 PM AIR TUCKER Pulse 109 08/15/2023 2:04 PM AIR TUCKER Temperature 37 C (98.6 F) 08/15/2023 2:04 PM AIR TUCKER Respiratory Rate - - Oxygen Saturation 97% 08/15/2023 2:04 PM AIR TUCKER Inhaled Oxygen Concentration - - Weight 92.4 kg (203 lb 12.8 oz) 08/15/2023 2:04 PM AIR TUCKER Height 177.8 cm (5' 10 ) 08/15/2023 2:04 PM AIR TUCKER Body Mass Index 29.24 08/15/2023 2:04 PM AIR TUCKER Plan of Treatment Not on file Care Teams Weaving Supervisor Relationship Specialty Start Date End Date Unknown, Provider PCP - General 08/15/23
--- OUTSIDE RECORDS SUMMARY | 2024-11-20 07:08 | XMS_ITS | Clinical Summary ---
Author Organization [facility] Address [address] [place] [address] Care Team Providers Care Stepdown Nurse Name Role Phone Unknown, Provider Primary Care Provider Unavaila ble Source Comments [facility],non-owned Affiliates and Associated Physician Practices is amultiple site organization consisting of ambulatory clinics and hospital sitesin [place], [place], [place] and [place]. This disclosure is being madepursuant to the Care Everywhere program and may not contain all information available regarding this patient. Last updated 18.[facility] Medications Be aware that medications may not [...] Comments Blood Pressure 128/96 08/15/2023 2:04 PM FACTORY PROCESS WORKERS Pulse 109 08/15/2023 2:04 PM FACTORY PROCESS WORKERS Temperature 37 C (98.6 F) 08/15/2023 2:04 PM FACTORY PROCESS WORKERS Respiratory Rate - - Oxygen Saturation 97% 08/15/2023 2:04 PM FACTORY PROCESS WORKERS Inhaled Oxygen Concentration - - Weight 92.4 kg (203 lb 12.8 oz) 08/15/2023 2:04 PM FACTORY PROCESS WORKERS Height 177.8 cm (5' 10 ) 08/15/2023 2:04 PM FACTORY PROCESS WORKERS Body Mass Index 29.24 08/15/2023 2:04 PM FACTORY PROCESS WORKERS Plan of Treatment Health Maintenance Due Date Last Done Comments KETTY (AGES 45-75) - COL ON CA SCREENING 1976 COLON MONITORING 1976 COLONOSCOPY - COLON CA SCREENING 1976 CT COLONOGRAPHY - COLON CA SCREENING 1976 Colorectal Cancer Screening 1976 FIT - COLON CA SCREENING 1976 FLEX SIG - COLON CA SCREENING 1976 LIPID TESTING 1976 HIV SCREENING 1991 HEPATITIS C SCREENING 02/27/1994 DTAP/TDAP/TD VACCINES (1 - Tdap) 1995 HEPATITIS B VACCINE (1 of 3 - 19+ 3-dose series) 1995 SCREENING FOR DIABETES 08/15/2023 COVID-19 VACCINE (1 - 2023-2 5 season) 2024 INFLUENZA VACCINE (#1) 2024 DEPRESSION SCREENING 09/16/2024 08/15/2023 ZOSTER VACCINE (1 of 2) 2026 HIB VACCINE Aged Out No longer eligi ble based on patient's age to complete this topic HPV VACCINE Aged Out No longer eligi ble based on patient's age to complete this topic MENINGOCOCCAL (Group B) VACCINE Aged Out No longer eligible based on patient's age to complete this topic MENINGOCOCCAL VACCINE Aged Out No mansoor nora eligible based on patient's age to complete this topic PNEUMOCOCCAL VACCINE Aged Out No long er eligible based on patient's age to complete this topic Care Teams Stepdown Nurse Relationship Specialty Start Date End Date Unknown, Provider PCP - General 08/15/23
[2024-11-20 08:20] LABS: Basophils Absolute Auto 0.1 K/mm3 (0.0-0.1); Basophils Percent Auto 0.8 % (0.2-1.2); Eosinophils Absolute Auto 0.1 K/mm3 (0-0.3); Eosinophils Percent Auto 1.5 % (0-4.4); Hematocrit 43.5 % (42.0-52.0); Hemoglobin 14.5 g/dL (14.0-18.0); Immature Granulocyte Absolute 0.02 K/mm3 (0.00-0.031); Immature Granulocyte Percent A 0.3 % (0-0.5); Lymphocytes Absolute Auto 2.05 K/mm3 (0.9-3.2); Lymphocytes Percent Auto 25.8 % (18.3-44.2); Mean Corpuscular HGB Conc 33.3 g/dl (32-36); Mean Corpuscular Hemoglobin 27.7 pg (26-34); Mean Corpuscular Volume 83.2 fl (80-100); Mean Platelet Volume 9.9 fl (7.4-10.4); Monocytes Absolute Auto 0.8 K/mm3 (0.1-0.6); Monocytes Percent Auto 9.9 % (2.6-8.5); Neutrophils Absolute Auto 4.9 K/mm3 (1.3-6.7); Neutrophils Percent Auto 61.7 % (45.5-73.1); Platelet Count Result 298 k/mm3 (150-375); Red Blood Count 5.23 M/mm3 (4.6-6.20); Red Cell Distribution Width 14.9 % (11.5-14.5)
[2024-11-20 08:32] LABS: Alanine Aminotransferase 18 U/L (6-50); Albumin Level 4.5 g/dL (3.5-5.1); Alkaline Phosphatase 145 U/L (38-126); Anion Gap 9 mmol/L (4-12); Aspartate Amino Transferase 31 U/L (17-59); Bilirubin,Total 0.2 mg/dL (0.2-1.3); Blood Urea Nitrogen 17 mg/dL (9-20); Calcium 9.3 mg/dL (8.4-10.2); Carbon Dioxide 26 mmol/L (22-30); Chloride 107 mmol/L (98-107); Cholesterol 161 mg/dL (0-200); Estimated Glomerular Filt Rate > 60; Glucose 104 mg/dL (65-110); HDL Direct 36 mg/dL; Potassium 4.1 mmol/L (3.4-5.0); Sodium 142 mmol/L (137-145); Triglycerides 280 mg/dL (<150)
[2024-11-20 08:42] LABS: LDL Cholesterol Direct 80 mg/dL
[2024-11-20 09:12] LABS: Free T4 Free Thyroxine 1.31 ng/dL (0.78-2.19)
[2024-11-23 10:48] LABS: PSA, Free 0.3 ng/mL; PSA, Total 1.3 ng/mL (< OR = 4.0); Percent Free Prostate Spec Ag 23 % (calc) (>25)
== END 2024-11-20 07:04 | disposition home or self-care (01) ==
LOC: ANHLAB 07:06
PROVIDERS: Student in an Organized Health Care Education/Training Program; PCP Family Medicine; Visit Provider Physician Assistant
DX: E03.9 Hypothyroidism, unspecified (principal); E78.2 Mixed hyperlipidemia; I10 Essential (primary) hypertension; Z12.5 Encounter for screening for malignant neoplasm of prostate
CPT/HCPCS: 36415; 80053; 80061; 84153; 84154; 84439; 84443; 85025

== ENCOUNTER 2025-07-19 06:50 | Outpatient (CLI) | payer BC, SELFPAY ==
--- OUTSIDE RECORDS SUMMARY | 2025-07-19 06:53 | XMS_ITS | Clinical Summary ---
Author Organization [facility] Address [address] [place] [address] Care Team Providers Care Cement Mason Apprentice Name Role Phone Unknown, Provider Primary Care Provider Unavaila ble Source Comments [facility],non-owned Affiliates and Associated Physician Practices is amultiple site organization consisting of ambulatory clinics and hospital sitesin [place], [place] and [place]. This disclosure is being madepursuant to the Care Everywhere program and may not contain all information available regarding this patient. Last updated 18.[facility] Medications * Be aware that medications may not be up to date on this document. Alwaysverify current medications with the patient. No known medications Active Problems No known active problems Social History Tobacco Use Types Packs/Day Years Used Date Smoking Tobacco: Never Assessed PHQ-2 Answer Date Recorded Patient Health Questionnaire-2 Score 0 08/15/2023 Sex and Gender Information Value Date Recorded Sex Assigned at Not on file Legal Sex Male 12:43 PM CDT Gender Identity Not on file Sexual Orientation Not on file Last Filed Vital Signs Vital Sign Reading Time Taken Comments Blood Pressure 128/96 08/15/2023 2:04 PM TRAFFIC CONTROL SPECIALIST Pulse 109 08/15/2023 2:04 PM TRAFFIC CONTROL SPECIALIST Temperature 37 C (98.6 F) 08/15/2023 2:04 PM TRAFFIC CONTROL SPECIALIST Respiratory Rate - - Oxygen Saturation 97% 08/15/2023 2:04 PM TRAFFIC CONTROL SPECIALIST Inhaled Oxygen Concentration - - Weight 92.4 kg (203 lb 12.8 oz) 08/15/2023 2:04 PM TRAFFIC CONTROL SPECIALIST Height 177.8 cm (5' 10) 08/15/2023 2:04 PM TRAFFIC CONTROL SPECIALIST Body Mass Index 29.24 08/15/2023 2:04 PM TRAFFIC CONTROL SPECIALIST Plan of Treatment Health Maintenance Due Date Last Done Comments COLOGUARD (AGES 45-75) - COL ON CA SCREENING [...] 3-dose series) 1995 SCREENING FOR DIABETES 08/15/2023 DEPRESSION SCREENING 09/16/2024 08/15/2023 COVID-19 VACCINE (1 - 2023-2 5 season) 2025 INFLUENZA VACCINE (#1) 2025 ZOSTER VACCINE (1 of 2) 2026 HIB VACCINE Aged Out No longer eligi ble based on patient's age to complete this topic HPV VACCINE Aged Out No longer eligi ble based on patient's age to complete this topic MENINGOCOCCAL (Group B) VACC INE SHARED DECISION-MAKING Aged Out No longer eligibl e based on patient's age to complete this topic MENINGOCOCCAL GROUPS A/C/Y/W VACCINE Aged Out No longer eligible b ased on patient's age to complete this topic Insurance YANET Care Teams Cement Mason Apprentice Relationship Specialty Start Date End Date Unknown, Provider PCP - General 08/15/23
[2025-07-19 08:04] LABS: Alanine Aminotransferase 15 U/L (6-50); Albumin Level 4.3 g/dL (3.5-5.1); Alkaline Phosphatase 141 U/L (38-126); Anion Gap 7 mmol/L (4-12); Aspartate Amino Transferase 39 U/L (17-59); Bilirubin,Total 0.3 mg/dL (0.2-1.3); Blood Urea Nitrogen 17 mg/dL (9-20); Calcium 8.9 mg/dL (8.4-10.2); Carbon Dioxide 26 mmol/L (22-30); Chloride 107 mmol/L (98-107); Cholesterol 163 mg/dL (0-200); Estimated Glomerular Filt Rate > 60; Glucose 107 mg/dL (65-110); HDL Direct 37 mg/dL; Potassium 4.1 mmol/L (3.4-5.0); Sodium 140 mmol/L (137-145); Total Protein 7.2 g/dL (6.3-8.2); Triglycerides 241 mg/dL (<150)
[2025-07-19 08:31] LABS: Free T4 Free Thyroxine 1.11 ng/dL (0.78-2.19)
[2025-07-19 08:40] LABS: Thyroid Stimulating Hormone 1.700 uIU/mL (0.465-4.680)
== END 2025-07-19 06:51 | disposition home or self-care (01) ==
LOC: ANHLAB 06:51
PROVIDERS: PCP Family Medicine; Visit Provider Physician Assistant
DX: E78.2 Mixed hyperlipidemia (principal); I10 Essential (primary) hypertension; E07.9 Disorder of thyroid, unspecified
CPT/HCPCS: 36415; 80053; 80061; 84439; 84443